=== PATIENT | male | born 1980 | race Caucasian/White ===

== ENCOUNTER 2018-10-22 02:13 | Emergency (ER) | payer OTHER ==
[2018-10-22] MEDS ORDERED: Sodium Chloride 0.9% 1000 ML 1,000 ML ONE (02:31)
[2018-10-22] MEDS ORDERED: Sodium Chloride 0.9% 1000 ML 1,000 ML IV STA (02:32)
[2018-10-22] MEDS ORDERED: TORAdol 30 mg Injection IV ONE (02:32)
[2018-10-22] MEDS ORDERED: Zofran 4 MG/2 ML VIAL ONE (02:34)
[2018-10-22] MEDS ORDERED: TORAdol 30 mg Injection ONE (02:34)
[2018-10-22] MEDS ORDERED: Zofran 4 MG/2 ML VIAL IV ONE (02:37)
--- NOTE | 2018-10-22 02:37 | ERPHSYRPT ---
- History of Present Illness Time Seen by Provider: 10/22/18 02:29 Historian: patient Exam Limitations: no limitations Patient Subjective Stated Complaint: pt is alert and oriented. pt is ambulatory with a steady gait. pt comes in with c/o left flank pain. pt denies hematuria, difficulty, or hesistency urinating. pt states that his pain started an hour ago and has been intensifying. pt states he has had nausea and vomiting since the pain started. pt skin is pwd. Triage Nursing Assessment: see above Physician History: 38-year-old white male with history of asthma complains of pain in the left flank described as sharp nonradiating symptoms for 1 hour associated with nausea and vomiting he denies any hematuria dysuria. Past medical history asthma past surgical history negative. Timing/Duration: today (one hour ago) Activities at Onset: none Quality: sharpness Abdominal Pain Onset Location: flank (left flank) Pain Radiation: no radiation Severity of Pain-Max: moderate Severity of Pain-Current: moderate Modifying Factors: Improves With: nothing, vomiting Associated Symptoms: back (left flank pain), nausea, vomiting, No chest pain, No diaphoresis, No diarrhea, No fever/chills, No fatigue, No headache, No heartburn, No loss of appetite, No neck pain, No shortness of breath, No syncope , No testicular pain Previous symptoms: no prior history Allergies/Adverse Reactions: amoxicillin Adverse Reaction (Verified 10/22/18 02:26) Home Medications: Lisinopril 20 mg PO DAILY 10/22/18 [History] hydroCHLOROthiazide [Hydrochlorothiazide] 25 mg PO DAILY 10/22/18 [History] Hx Influenza Vaccination/Date Given: Yes Immunizations Up to Date: Yes - Review of Systems Constitutional: No Fever, No Chills Eyes: No Symptoms Ears, Nose, & Throat: No Symptoms Respiratory: No Cough, No Dyspnea Cardiac: No Chest Pain, No Edema, No Syncope Abdominal/Gastrointestinal: Nausea, Vomiting (and) Genitourinary Symptoms: Flank Pain (right flank pain) Musculoskeletal: Back Pain (left flank pain), No Neck Pain Skin: No Rash Neurological: No Dizziness, No Focal Weakness, No Sensory Changes Psychological: No Symptoms Endocrine: No Symptoms All Other Systems: Reviewed and Negative - Past Medical History Pertinent Past Medical History: No Neurological History: No Pertinent History ENT History: No Pertinent History Cardiac History: No Pertinent History Respiratory History: Sleep Apnea Endocrine Medical History: No Pertinent History Musculoskeletal History: No Pertinent History GI Medical History: No Pertinent History History: No Pertinent History Psycho-Social History: No Pertinent History Male Reproductive Disorders: No Pertinent History - Past Surgical History Past Surgical History: No - Social History Smoking Status: Never smoker Exposure to second hand smoke: No Drug Use: none Patient Lives Alone: No - Nursing Vital Signs Nursing Vital Signs: Initial Vital Signs Temperature 98.2 F 10/22/18 02:13 Pulse Rate 77 10/22/18 02:13 Respiratory Rate 18 10/22/18 02:13 Blood Pressure 139/84 10/22/18 02:13 O2 Sat by Pulse Oximetry 97 10/22/18 02:13 Pain Scale Pain Intensity 4 - Physical Exam General Appearance: moderate distress, alert Eye Exam: PERRL/EOMI, eyes nml inspection Ears, Nose, Throat Exam: normal ENT inspection, pharynx normal, moist mucous membranes Neck Exam: normal inspection, non-tender, supple, full range of motion Respiratory Exam: normal breath sounds, lungs clear, No respiratory distress Cardiovascular Exam: regular rate/rhythm, normal heart sounds, capillary refill <2 sec Gastrointestinal/Abdomen Exam: soft, tenderness (slight periumbilical tenderness with palpation), No mass Back Exam: normal range of motion, CVA tenderness (left flank tenderness), No vertebral tenderness Extremity Exam: normal inspection, normal range of motion, pelvis stable Neurologic Exam: alert, oriented x 3, cooperative, 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 Left hydronephrosis secondary to a 2-3 mm calculus at the UVJ. This may have recently passed into the urinary bladder. 2. Splenomegaly.) Ordered Tests: Active Orders 24 hr Category Date Time Status IV Insertion STAT Care 10/22/18 02:32 Active ABDOMEN AND PELVIS W/0 CONTRAS [CT] Stat Exams 10/22/18 02:40 Taken AMYLASE Stat Lab 10/22/18 02:42 Completed CBC W DIFF Stat Lab 10/22/18 02:42 Completed CMP Stat Lab 10/22/18 02:42 Completed LIPASE Stat Lab 10/22/18 02:42 Completed UA W/RFX UR CULTURE Stat Lab 10/22/18 03:48 Completed Medication Summary Discontinued Medications Generic Name Dose Route Start Last Admin Trade Name Graciela PRN Reason Stop Dose Admin Hydrocodone Bitart/Acetaminophen 2 tab 10/22/18 05:03 10/22/18 05:08 [place] 5/325 Mg PO 10/22/18 05:04 2 tab SENT HOME W/ PATIENT ONE Administration Hydrocodone Bitart/Acetaminophen Confirm 10/22/18 05:06 [place] 5/325 Mg Administered 10/22/18 05:07 Dose 2 tab .ROUTE .STK-MED ONE Sodium Chloride Confirm 10/22/18 02:31 Sodium Chloride 0.9% 1000 Ml Administered 10/22/18 02:32 Dose 1,000 mls @ ud .ROUTE .STK-MED ONE Sodium Chloride 1,000 mls @ 999 mls/hr 10/22/18 02:32 10/22/18 02:40 Sodium Chloride 0.9% 1000 Ml IV 10/22/18 03:32 999 mls/hr .Q1H1M STA Administration Ketorolac Tromethamine 30 mg 10/22/18 02:32 10/22/18 02:40 Toradol 30 Mg Injection IV 10/22/18 02:33 30 mg STAT ONE Administration Ketorolac Tromethamine Confirm 10/22/18 02:34 Toradol 30 Mg Injection Administered 10/22/18 02:35 Dose 30 mg .ROUTE .STK-MED ONE Morphine Sulfate 4 mg 10/22/18 05:28 10/22/18 05:30 Morphine Sulfate 4 Mg Inj IV 10/22/18 05:29 4 mg STAT ONE Administration Morphine Sulfate Confirm 10/22/18 05:29 Morphine Sulfate 4 Mg Inj Administered 10/22/18 05:30 Dose 4 mg .ROUTE .STK-MED ONE Ondansetron HCl Confirm 10/22/18 02:34 Zofran 4 Mg/2 Ml Vial Administered 10/22/18 02:35 Dose 4 mg .ROUTE .STK-MED ONE Ondansetron HCl 4 mg 10/22/18 02:37 10/22/18 02:41 Zofran 4 Mg/2 Ml Vial IV 10/22/18 02:38 4 mg STAT ONE Administration Lab/Rad Data: Laboratory Result Diagrams 10/22/18 02:42 10/22/18 02:42 Laboratory Results 10/22/18 10/22/18 10/22/18 Range/Units 03:48 02:42 02:42 WBC 7.7 (4.0-10.5) K/mm3 RBC 5.16 (4.1-5.6) M/mm3 Hgb 15.9 (12.5-18.0) gm/dl Hct 45.7 (42-50) % MCV 88.6 (78-100) fl MCH 30.8 (26-32) pg MCHC 34.8 (32-36) g/dl RDW 12.6 (11.5-14.0) % Plt Count 174 (150-450) K/mm3 MPV 10.9 H (6-9.5) fl Gran % 57.3 (36.0-66.0) % Eos # (Auto) 0.09 (0-0.5) Absolute Lymphs (auto) 2.64 (1.0-4.6) Absolute Monos (auto) 0.56 (0.0-1.3) Lymphocytes % 34.2 (24.0-44.0) % Monocytes % 7.2 (0.0-12.0) % Eosinophils % 1.2 (0.00-5.0) % Basophils % 0.1 (0.0-0.4) % Absolute Granulocytes 4.43 (1.4-6.9) Basophils # 0.01 (0-0.4) Sodium 141 (137-145) mmol/L Potassium 3.2 L (3.5-5.1) mmol/L Chloride 104 (98-107) mmol/L Carbon Dioxide 24 (22-30) mmol/L Anion Gap 16.2 H (5-15) MEQ/L BUN 19 (9-20) mg/dL Creatinine 0.96 (0.66-1.25) mg/dL Estimated GFR > 60.0 ML/MIN Glucose 116 H (74-106) mg/dL Calcium 9.8 (8.4-10.2) mg/dL Total Bilirubin 0.90 (0.2-1.3) mg/dL AST 29 (17-59) U/L ALT 26 (0-50) U/L Alkaline Phosphatase 77 (38-126) U/L Serum Total Protein 8.2 (6.3-8.2) g/dL Albumin 4.6 (3.5-5.0) g/dL Amylase 97 (30-110) U/L Lipase 131 (23-300) U/L Urine Color YELLOW (YELLOW) Urine Appearance SLIGHTLY CLOUDY (CLEAR) Urine pH 5.0 (5-6) Ur Specific [place] 1.027 (1.005-1.025) Urine Protein NEGATIVE (Negative) Urine Ketones MODERATE (NEGATIVE) Urine Blood LARGE (0-5) Jv/ul Urine Nitrite NEGATIVE (NEGATIVE) Urine Bilirubin NEGATIVE (NEGATIVE) Urine Urobilinogen NEGATIVE (0-1) mg/dL Ur Leukocyte Esterase NEGATIVE (NEGATIVE) Urine WBC (Auto) 0-2 (0-5) /HPF Urine RBC (Auto) 11-15 (0-2) /HPF U Epithel Cells (Auto) RARE (FEW) /HPF Urine Bacteria (Auto) RARE (NEGATIVE) /HPF Urine Mucus (Auto) SLIGHT (NEGATIVE) /HPF Urine Culture Reflexed NO (NO) Urine Glucose NEGATIVE (NEGATIVE) mg/dL - Progress Progress: improved Progress Note: 10/22/18 04:15 The patient is feeling markedly better awaiting CT results. 10/22/18 04:51 CT pelvis remarkable for left hydronephrosis secondary to 3 mm calculus at the UVJ. This may have recently passed into the urinary bladder. Also splenomegaly. Patient is feeling markedly better Will discharge. Will place patient on [place] he is to strain his urine plenty of fluids followup with his family . He will be warned about contact sports and activities to reading of splenomegaly by radiologist. . 10/22/18 04:56 10/22/18 05:27 Patient states his pain is beginning to come back will go ahead and give patient morphine 4 mg IV. - Departure Departure Disposition: Home Clinical Impression: Left flank pain, Splenomegaly Urolithiasis Qualifiers: Urinary calculus location: lower urinary tract Qualified Code(s): N21.9 - Calculus of lower urinary tract, unspecified Condition: Fair Critical Care Time: No Referrals: NADER ESTRADA [Primary Care Provider] - Additional Instructions: Return home, rest, plenty of fluids clear fluids only 24-48 hours if abdominal pain. Strain all urine. [place] as directed. Followup with your family . Your spleen was noted to be enlarged by the radiologist. Avoid contact sports or heavy contact activities. Return for acute distress severe symptoms or for any problems. Prescriptions: Hydrocodone/APAP 5-325 Tab^^^ [[place] 5-325 Tablet^^^] 1 each PO Q4HPRN PRN #12 tablet MDD 6 PRN Reason: flank pain Ondansetron ODT 4 MG [Zofran Odt 4 mg] 4 mg PO Q6H PRN PRN #10 tab.rapdis PRN Reason: nausea and vomiting
[2018-10-22 02:46] LABS: BASOPHIL % 0.1 % (0.0-0.4); Basophil (Absolute #) 0.01 (0-0.4); Eosinophil % 1.2 % (0.00-5.0); Eosinophil (Absolute #) 0.09 (0-0.5); Granulocyte Absolute (ANC) 4.43 (1.4-6.9); Granulocytes % 57.3 % (36.0-66.0); Hematocrit 45.7 % (42-50); Hemoglobin 15.9 gm/dl (12.5-18.0); Lymphocyte (Absolute #) 2.64 (1.0-4.6); Lymphocytes % 34.2 % (24.0-44.0); Mean Cell Volume 88.6 fl (78-100); Mean Corpuscular Hemoglobin 30.8 pg (26-32); Mean Corpuscular Hgb Concent. 34.8 g/dl (32-36); Mean Platelet Volume 10.9 fl (6-9.5); Monocyte (Absolute #) 0.56 (0.0-1.3); Monocytes % 7.2 % (0.0-12.0); Platelet Count 174 K/mm3 (150-450); Red Blood Count 5.16 M/mm3 (4.1-5.6); Red Cell Distribution Width 12.6 % (11.5-14.0); White Blood Count 7.7 K/mm3 (4.0-10.5)
[2018-10-22 03:02] LABS: ALBUMIN 4.6 g/dL (3.5-5.0); ALKALINE PHOSPHATASE 77 U/L (38-126); AMYLASE 97 U/L (30-110); ANION GAP 16.2 MEQ/L (5-15); BLOOD UREA NITROGEN 19 mg/dL (9-20); CHLORIDE 104 mmol/L (98-107); Calcium 9.8 mg/dL (8.4-10.2); Carbon Dioxide 24 mmol/L (22-30); Creatinine 1 0.96 mg/dL (0.66-1.25); Glucose 116 mg/dL (74-106); LIPASE 131 U/L (23-300); Potassium 3.2 mmol/L (3.5-5.1); SGOT/AST 29 U/L (17-59); SGPT/ALT 26 U/L (0-50); SODIUM 141 mmol/L (137-145); Total Protein 8.2 g/dL (6.3-8.2)
[2018-10-22 03:55] LABS: Appearance SLIGHTLY CLOUDY (CLEAR); Bacteria RARE /HPF (NEGATIVE); Bilirubin NEGATIVE (NEGATIVE); Blood LARGE Ery/ul (0-5); Epithelial Cells RARE /HPF (FEW); Glucose NEGATIVE (NEGATIVE); Ketones MODERATE (NEGATIVE); Leukocyte Esterase NEGATIVE (NEGATIVE); Mucus SLIGHT /HPF (NEGATIVE); Nitrite NEGATIVE (NEGATIVE); Protein,Urine Dip NEGATIVE (Negative); Specific Gravity 1.027 (1.005-1.025); Urobilinogen NEGATIVE mg/dL (0-1); WBC 0-2 /HPF (0-5)
[2018-10-22 04:16] VITALS: O2SAT 97
[2018-10-22] MEDS ORDERED: NORCO 5/325 MG PO ONE (05:03)
[2018-10-22] MEDS ORDERED: NORCO 5/325 MG ONE (05:06)
[2018-10-22] MEDS ORDERED: MORPHINE SULFATE 4 MG INJ IV ONE (05:28)
[2018-10-22] MEDS ORDERED: MORPHINE SULFATE 4 MG INJ ONE (05:29)
[2018-10-22 05:51] VITALS: BP 133/80; PULSE 75
--- NOTE | 2018-10-22 08:58 | XRAY ---
Indication: Right flank pain. Multiple contiguous axial images obtained through the abdomen and pelvis without contrast as ordered. Comparison: None Lung bases are clear. Heart is not enlarged. Noncontrasted stomach and bowel loops appear nonobstructed. Normal appendix. No free fluid/air. Posterior urinary bladder demonstrates a 2-3 mm calculus on the left. Left ureter is slightly prominent and there is mild hydronephrosis consistent with recent passage of said calculus. Mild diffuse fatty liver. Spleen is enlarged measuring 14.4 cm with a solitary calcified splenic granuloma. Remaining liver, gallbladder, pancreas, spleen, adrenal glands, kidneys, ureters, and bladder appear unremarkable for noncontrast exam. Minimal aortic calcifications without AAA. Osseous structures intact with minimal/mild degenerative changes throughout the thoracolumbar spine. Impression: 1. 2-3 mm bladder calculus with left findings consistent with recent passage of calculus. 2. Incidental fatty liver and splenomegaly. 3. Remaining CT abdomen/pelvis without contrast exam is negative. Comment: Preliminary interpretation was made by [facility]. No critical discrepancy. CT DI 23.68
== END 2018-10-22 06:00 | disposition home or self-care (01) ==
LOC: ED 02:13
DX: R10.12 Left upper quadrant pain (principal); R16.1 Splenomegaly, not elsewhere classified; N21.9 Calculus of lower urinary tract, unspecified
CPT/HCPCS: 36000; 36415; 74176; 80053; 81001; 82150; 83690; 85025; 96360; 96374; 96375; 99284; J1885; J2270; J2405; A9270-GY